=== PATIENT | female | born 1955 ===

== ENCOUNTER → 2018-04-20 | Outpatient (CLI) | payer OTHER ==
[~2018-04-20] MED LIST: IBUP-103 PO
--- NOTE | 2018-04-20 15:08 | DIAGNOSTIC IMAGING REPORT ---
CHEST 2 VIEWS ROUTINE HISTORY: Preop. COMPARISON: None. FINDINGS: The lungs are clear. Cardiac silhouette is normal in size. No pleural effusions. No pneumothorax. Mild S-shaped scoliosis within the thoracic spine. IMPRESSION: No acute process. Electronically signed by: Boston Denny M.D. 04/20/2018 3:07 PM Dictated Date/Time: 04/20/2018 3:06 PM
[2018-04-20 15:34] LABS: BASO % 0.6 %; BASO ABS # 0.05 K/uL (0-0.2); EOS % 3.5 %; HEMATOCRIT 35.8 % (37-47); HEMOGLOBIN 12.2 g/dL (12.0-16.0); IG# 0.01 K/uL (0.00-0.02); LYMPH % 25.9 %; LYMPH ABS # 2.25 K/uL (1.2-3.4); MEAN CELL VOLUME 89.9 fL (80-100); MEAN CORPUSCULAR HEMOGLOBIN 30.7 pg (25-34); MEAN CORPUSCULAR HGB CONC 34.1 g/dl (32-36); MEAN PLATELET VOLUME 9.8 fL (7.4-10.4); MONO % 6.9 %; NEUT ABS # 5.48 K/uL (1.4-6.5); PLATELET COUNT 551 K/uL (130-400); RED CELL DISTRIBUTION WIDTH CV 13.4 % (11.5-14.5); RED CELL DISTRIBUTION WIDTH SD 44.3 fL (36.4-46.3); WHITE BLOOD COUNT 8.69 K/uL (4.8-10.8)
[2018-04-20 15:39] LABS: ALBUMIN 3.2 gm/dl (3.4-5.0); BLOOD UREA NITROGEN 16 mg/dl (7-18); CALCIUM 9.4 mg/dl (8.5-10.1); CARBON DIOXIDE 27 mmol/L (21-32); CREATININE 0.85 mg/dl (0.60-1.20); GLUCOSE 86 mg/dl (70-99); POTASSIUM 4.1 mmol/L (3.5-5.1); SODIUM 139 mmol/L (136-145)
[2018-04-20 15:43] LABS: PTT PATIENT 26.9 SECONDS (21.0-31.0)
[2018-04-20 16:10] LABS: HEMOGLOBIN A1C 5.5 % (4.5-5.6)
== END | disposition home or self-care (01) ==
LOC: C.CPL 14:09
PROVIDERS: ATTEND Orthopaedic Surgery
DX: Z01.810 Encounter for preprocedural cardiovascular examination (principal); Z01.811 Encounter for preprocedural respiratory examination; Z01.812 Encounter for preprocedural laboratory examination